=== PATIENT | male | born 1960 | race Caucasian/White ===

== ENCOUNTER 2020-04-05 17:24 | Emergency (ER) | payer OTHER ==
[~2020-04-05] VITALS: Ht 177.8 cm; Wt 106.6 kg
[2020-04-05] MEDS ORDERED: TAMSULOSIN HCL0.4 MG PO (17:52)
[2020-04-05] MEDS ORDERED: OLMESARTAN-HCT1 EAC1 PO (17:52)
[2020-04-05] MEDS ORDERED: OMEGA-3 ACID ETH1 GM PO (17:52)
== END 2020-04-05 22:43 | disposition home or self-care (01) ==
LOC: ER 17:24
DX: R55 Syncope and collapse (principal); E86.0 Dehydration; Z03.818 Encounter for observation for suspected exposure to other biological agents ruled out

== ENCOUNTER 2023-04-16 18:43 | Emergency (ER) | payer OTHER ==
[~2023-04-16] VITALS: Ht 177.8 cm; Wt 97.5 kg
[~2023-04-16 18:43] MED LIST: OLMESARTAN-HCT1 EAC1 PO; OMEGA-3 ACID ETH1 GM PO; TAMSULOSIN HCL0.4 MG PO
[2023-04-16] MEDS ORDERED: TRUVADA 200 MG1 EACH (18:46)
== END 2023-04-16 22:05 | disposition home or self-care (01) ==
LOC: ER 18:44
DX: M54.12 Radiculopathy, cervical region (principal); I10 Essential (primary) hypertension; M77.31 Calcaneal spur, right foot

== ENCOUNTER 2024-03-23 10:03 | Emergency (ER) | payer OTHER ==
[~2024-03-23] VITALS: Ht 177.8 cm; Wt 97.5 kg
[~2024-03-23 10:03] MED LIST changes: +TRUVADA 200 MG1 EACH
[2024-03-23 14:43] LABS: HEMATOCRIT 41.7 % (39.0-48.0); HEMOGLOBIN 14.9 g/dL (13-16.00); MEAN CELL VOLUME 92.2 fL (80.0-100.00); MEAN CORPUSCULAR HEMOGLOBIN 32.9 pg (27.00-32.0); MEAN CORPUSCULAR HGB CONC 35.7 g/dl (32.0-36.0); PLATELET COUNT 207 K/uL (150-450); RED BLOOD COUNT 4.52 M/uL (4.00-6.00)
[2024-03-23 15:01] LABS: INR 0.99; PARTIAL THROMBOPLASTIN TIME 28.5 SECONDS (22.0-34.0); PROTHROMBIN TIME 10.8 SECONDS (9.0-11.5)
[2024-03-23 15:07] LABS: CALCIUM 9.7 mg/dL (8.5-10.1); CREATININE SERUM 0.8 mg/dL (0.70-1.30); GFR 97.95; POTASSIUM 4.49 mEq/L (3.5-5.1)
== END 2024-03-23 17:04 | disposition home or self-care (01) ==
LOC: ER 10:06
PROVIDERS: General Practice
DX: R05.9 Cough, unspecified (principal); I10 Essential (primary) hypertension